=== PATIENT | female | born 1960 | race Caucasian/White ===

== ENCOUNTER 2019-10-10 10:32 | Outpatient (CLI) | payer OTHER, SELFPAY ==
--- NOTE | ~2019-10-10 | XR_ITS ---
EXAMINATION: XR ankle LT min 3V EXAM DATE: 10/10/2019 10:54 INDICATION: No known recent injury provided at this time. Pain of the left ankle. TECHNIQUE: Left ankle frontal, lateral and oblique projections obtained and reviewed. There is no pr ior study for comparison. FINDINGS: The left ankle mortise appears intact. There are no acute fractures or dislocations ident ified. There is no subcutaneous gas. The soft tissue is unremarkable. There are no radiopaque for eign bodies. IMPRESSION: 1. Unremarkable XR ankle LT min 3V exam. Reviewed, dictated and finalized at location B.
--- NOTE | ~2019-10-10 | XR_ITS ---
EXAMINATION: XR wrist LT min 3V EXAM DATE: 10/10/2019 10:54 INDICATION: No known recent injury provided at this time. Pain of the left wrist. TECHNIQUE: Left wrist frontal, frontal with ulnar deviation, oblique and lateral projections obtained and reviewed. There is no prior study for comparison. FINDINGS: Left wrist scapholunate joint space is maintained. There are no acute fractures or dislocat ions identified. There is no subcutaneous gas. The soft tissue is unremarkable. There are no radi opaque foreign bodies. There are no bony erosions identified. IMPRESSION: 1. Unremarkable XR wrist LT min 3V exam. Reviewed, dictated and finalized at location B.
== END 2019-10-10 10:33 | disposition home or self-care (01) ==
LOC: ANHIMG 10:37
PROVIDERS: PCP Family Medicine; Visit Provider Family Medicine
DX: M77.8 Other enthesopathies, not elsewhere classified (principal); M25.473 Effusion, unspecified ankle; M25.579 Pain in unspecified ankle and joints of unspecified foot
CPT/HCPCS: 73110; 73610

== ENCOUNTER 2019-10-25 12:22 | Outpatient (CLI) | payer OTHER, SELFPAY ==
--- NOTE | ~2019-10-25 | MM_ITS ---
EXAMINATION: MM screening obey BI w lam HISTORY: Screening TECHNIQUE: Craniocaudal and mediolateral oblique 3-D tomosynthesis images were obtained and synthetic 2-D images were generated. CAD analysis was submitted and interpreted. COMPARISON: No prior mammogram is available for comparison at this institution. BREAST PARENCHYMAL COMPOSITION: There are scattered areas of fibroglandular density. FINDINGS: There is a focal mass in the upper outer quadrant of the right breast. There are focal asym metries in the subareolar and upper outer quadrant locations of the left breast. IMPRESSION: 1. Focal right breast mass and left breast asymmetries. 2. Additional mammographic views and possible breast ultrasound are recommended. BI-RADS Category 0: Incomplete: Needs additional imaging evaluation. Reviewed, dictated and finalized at location A. IMPRESSION: 1. Focal right breast mass and left breast asymmetries. 2. Additional mammographic views and possible breast ultrasound are recommended . BI-RADS Category 0: Incomplete: Needs additional imaging evaluation.
== END 2019-10-25 12:23 | disposition home or self-care (01) ==
LOC: ANHIMG 12:23
PROVIDERS: PCP Family Medicine; Visit Provider Family Medicine
DX: Z12.31 Encounter for screening mammogram for malignant neoplasm of breast (principal); R92.8 Other abnormal and inconclusive findings on diagnostic imaging of breast
CPT/HCPCS: 77063; 77067

== ENCOUNTER 2019-11-23 11:39 | Outpatient (CLI) | payer OTHER, SELFPAY ==
--- NOTE | ~2019-11-23 | MMUS_ITS ---
EXAMINATION: MM diagnostic mammo BI, US breast BI limited HISTORY: Right breast mass and focal asymmetries of the left breast on baseline screening mammogram TECHNIQUE: Additional 3-D tomosynthesis images of the breasts were performed and synthetic 2-D images were generated. CAD analysis was submitted and interpreted. High resolution limited bilateral breast ultrasound was performed. COMPARISON: 10/25/2019 FINDINGS: MAMMOGRAPHIC FINDINGS: Right breast: A 7 mm oval, circumscribed, equal density mass is present in the posterior third of the upper outer quadrant of the breast 10 cm from the nipple and appears to contain central fat, likely an intramammary lymph node. Left breast: There is persistent subareolar asymmetry of the left breast. The asymmetry identified in the middle third of the outer breast on the craniocaudal view does not definitely persist with spot compression. ULTRASOUND: Right breast: An intramammary lymph node is seen in the upper outer quadrant of the breast correspond ing to the mammographic finding in question. No suspicious cystic or solid mass is identified. Left breast: No sonographic correlate is identified for the subareolar asymmetry of the breast. IMPRESSION: 1. Probably benign left breast asymmetry. 2. Recommend 6 month follow-up left diagnostic mammogram with possible ultrasound. BI-RADS category 3, probably benign findings. Reviewed, dictated and finalized at location A. IMPRESSION: 1. Probably benign left breast asymmetry. 2. Recommend 6 month follow-up left diagnostic mammogram with possible ultrasou nd. BI-RADS category 3, probably benign findings.
== END 2019-11-23 11:40 | disposition home or self-care (01) ==
LOC: ANHIMG 11:40
PROVIDERS: PCP Family Medicine; Visit Provider Physician Assistant
DX: N63.10 Unspecified lump in the right breast, unspecified quadrant (principal); R92.8 Other abnormal and inconclusive findings on diagnostic imaging of breast
CPT/HCPCS: 76642; 77066